=== PATIENT | male | born 1970 | race Caucasian/White ===

== ENCOUNTER 2016-11-26 17:37 | Inpatient (IN) | payer OTHER ==
[~2016-11-26] VITALS: Ht 182.9 cm; Wt 104.3 kg
[~2016-11-26 17:37] MED LIST: DOK100 MG PO; DONEPEZIL HCL10 MG PO; FAMOTIDINE20 MG PO; IMIPRAMINE HCL10 MG PO; LORATADINE10 MG PO; METHENAMINE HIPP1 GM PO; PROBIOTIC FORM1 EACH PO; SENNA8.6 MG PO; SIMETHICONE80 MG PO; SYMMETREL 100100 MG PO
[2016-11-26 20:32] LABS: HEMOGLOBIN 12.1 gm/dl (14.0-17.5); RED BLOOD COUNT 4.48 M/UL (4.20-5.50); WHITE BLOOD COUNT 11.1 K/UL (4.5-11.0)
[2016-11-26 20:56] LABS: BUN/CREATININE RATIO 30 (0-10)
[2016-11-27] MEDS ORDERED: NEURONTIN 400400 MG PO (10:32)
[2016-11-27] MEDS ORDERED: FERROUS SULFAT325 MG PO (10:33)
[2016-11-27] MEDS ORDERED: LISINOPRIL5 MG PO (10:35)
[2016-11-27] MEDS ORDERED: IPRAT-ALBUT 0.5-3 ML INH (10:35)
[2016-11-27] MEDS ORDERED: DITROPAN 5 MG TA5 MG PO (10:36)
[2016-11-27] MEDS ORDERED: TRAZODONE HCL50 MG PO (10:36)
[2016-11-27] MEDS ORDERED: IBUPROFEN800 MG PO (10:37)
[2016-11-27] MEDS ORDERED: VENTOLIN HFA 66.7 GM INH (10:38)
[2016-11-28 03:51] LABS: HEMOGLOBIN 10.6 gm/dl (14.0-17.5); WHITE BLOOD COUNT 11.5 K/UL (4.5-11.0)
[2016-11-28 04:00] LABS: RED BLOOD COUNT 3.98 M/UL (4.20-5.50)
[2016-11-28 04:21] LABS: BUN/CREATININE RATIO 22 (0-10)
--- NOTE | 2016-11-28 14:11 | NUR ---
1335 PATIENT TRANSPORTED TO SURGERY FOR WOUND DEBRIDEMENT
--- NOTE | 2016-11-28 16:50 | NUR ---
[id number] RETURNED FROM OR PATIENT ALERT ORIENTED
[2016-11-29 05:16] LABS: HEMOGLOBIN 10.2 gm/dl (14.0-17.5); RED BLOOD COUNT 3.9 M/UL (4.20-5.50); WHITE BLOOD COUNT 9.6 K/UL (4.5-11.0)
[2016-11-29 05:55] LABS: BUN/CREATININE RATIO 20 (0-10)
[2016-11-30 05:00] LABS: HEMOGLOBIN 10.1 gm/dl (14.0-17.5); RED BLOOD COUNT 3.85 M/UL (4.20-5.50); WHITE BLOOD COUNT 8.5 K/UL (4.5-11.0)
[2016-11-30 05:23] LABS: BUN/CREATININE RATIO 17 (0-10)
[2016-12-01 05:19] LABS: HEMOGLOBIN 10.4 gm/dl (14.0-17.5); RED BLOOD COUNT 3.97 M/UL (4.20-5.50); WHITE BLOOD COUNT 9.4 K/UL (4.5-11.0)
[2016-12-01 05:41] LABS: BUN/CREATININE RATIO 26 (0-10)
[2016-12-02 05:14] LABS: HEMOGLOBIN 10.1 gm/dl (14.0-17.5); RED BLOOD COUNT 3.85 M/UL (4.20-5.50); WHITE BLOOD COUNT 9.9 K/UL (4.5-11.0)
[2016-12-02 05:34] LABS: BUN/CREATININE RATIO 38 (0-10)
[2016-12-03] MEDS ORDERED: INVANZ 1 GM VIAL1 GM IV (16:09)
[2016-12-03] MEDS ORDERED: JUVEN PACKET1 EACH PO (16:10)
[2016-12-03] MEDS ORDERED: LEXAPRO5 MG PO (16:11)
[2016-12-03] MEDS ORDERED: AMOXICILLIN PO (16:11)
[2016-12-03] MEDS ORDERED: MIRALAX17 GM PO (16:12)
[2016-12-03] MEDS ORDERED: DAILY VALUE1 EACH PO (16:15)
[2016-12-03] MEDS ORDERED: FOLIC ACID 1 MG1 MG PO (16:49)
== END 2016-12-03 18:40 | disposition home health service (06) | DRG 853 ==
LOC: ER1 17:37 → ZEROF 23:06 → M/S 23:06 → PROG CARE 23:06 → M/S 11-27 06:00 → ZEROF 11-27 06:23 → ER1 11-27 06:23 → M/S 11-27 14:53 → PROG CARE 11-27 20:08 → M/S 12-01 16:11
PROVIDERS: Emergency Medicine; Family Medicine; Internal Medicine; Surgery; ADMIT Internal Medicine
PROC: 0HDMXZZ Extraction of Right Foot Skin, External Approach (ICD-10-PCS; 2016-11-28)
PROC: 0JB90ZZ Excision of Buttock Subcutaneous Tissue and Fascia, Open Approach (ICD-10-PCS; principal; 2016-11-28 13:15)
PROC: 02HV33Z Insertion of Infusion Device into Superior Vena Cava, Percutaneous Approach (ICD-10-PCS; 2016-12-01)
PROC: B548ZZA Ultrasonography of Superior Vena Cava, Guidance (ICD-10-PCS; 2016-12-01)
DX: A41.9 Sepsis, unspecified organism (principal); L89.313 Pressure ulcer of right buttock, stage 3; N30.01 Acute cystitis with hematuria; I96 Gangrene, not elsewhere classified; G82.20 Paraplegia, unspecified; G82.21 Paraplegia, complete; L89.151 Pressure ulcer of sacral region, stage 1; B95.2 Enterococcus as the cause of diseases classified elsewhere; B96.1 Klebsiella pneumoniae [K. pneumoniae] as the cause of diseases classified elsewhere; I10 Essential (primary) hypertension; E53.8 Deficiency of other specified B group vitamins; L89.629 Pressure ulcer of left heel, unspecified stage; L89.619 Pressure ulcer of right heel, unspecified stage; F32.9 Major depressive disorder, single episode, unspecified; T14.8 Other injury of unspecified body region; V89.2XXS Person injured in unspecified motor-vehicle accident, traffic, sequela; Z87.440 Personal history of urinary (tract) infections; N31.9 Neuromuscular dysfunction of bladder, unspecified; Z98.890 Other specified postprocedural states; Z79.899 Other long term (current) drug therapy; Z82.49 Family history of ischemic heart disease and other diseases of the circulatory system; Z87.891 Personal history of nicotine dependence; Z86.14 Personal history of Methicillin resistant Staphylococcus aureus infection; Z83.3 Family history of diabetes mellitus; K21.9 Gastro-esophageal reflux disease without esophagitis; R11.10 Vomiting, unspecified; I95.9 Hypotension, unspecified; K59.00 Constipation, unspecified; G47.00 Insomnia, unspecified; E87.6 Hypokalemia
CPT/HCPCS: 36415; 71010; 73650; 80048; 80053; 80202; 81001; 82607; 82728; 82746; 83540; 83735; 84466; 85025; 85027; 85045; 86140; 87040; 87070; 87077; 87086; 87186; 87205; 93005; 94640; 94664; 96365; 96366; 96372; 99283; C9113; G0378; J1335; J1650; J1756; J2250; J2370; J2543; J2550; J3010; J3370; J7030; J7040; J7050; J7070; J7120

== ENCOUNTER → 2017-01-13 | Outpatient (CLI) | payer OTHER ==
[~2017-01-13] VITALS: Ht 182.9 cm; Wt 104.3 kg
[~2017-01-13] MED LIST changes: +AMOXICILLIN PO; +ATIVAN0.5 MG SL; +DAILY VALUE1 EACH PO; +DITROPAN 5 MG TA5 MG PO; +DURAGESIC1 EAC1 TOP; +FERROUS SULFAT325 MG PO; +FOLIC ACID 1 MG1 MG PO; +IBUPROFEN800 MG PO; +INVANZ 1 GM VIAL1 GM IV; +IPRAT-ALBUT 0.5-3 ML INH; +JUVEN PACKET1 EACH PO; +LEXAPRO5 MG PO; +LISINOPRIL5 MG PO; +MIRALAX17 GM PO; +NEURONTIN 400400 MG PO; +ROXANOL SOLN20 MG/ML PO; +TRANSDERM-SCOP1 EACH TOP; +TRAZODONE HCL50 MG PO; +VENTOLIN HFA 66.7 GM INH
[2017-01-13 10:17] LABS: HEMOGLOBIN 11.4 gm/dl (14.0-17.5); RED BLOOD COUNT 4.27 M/UL (4.20-5.50); WHITE BLOOD COUNT 9.2 K/UL (4.5-11.0)
[2017-01-13 11:01] LABS: BUN/CREATININE RATIO 43 (0-10)
== END ==
LOC: OPSV 09:00
PROVIDERS: Surgery
DX: M86.9 Osteomyelitis, unspecified (principal)
CPT/HCPCS: 36592; 80048; 85027; 96365; 96366; J3370; J7030

== ENCOUNTER 2017-05-12 19:45 | Inpatient (IN) | payer OTHER ==
[~2017-05-12] VITALS: Ht 182.9 cm; Wt 111.6 kg
[~2017-05-12 19:45] MED LIST changes: -ATIVAN0.5 MG SL; -DURAGESIC1 EAC1 TOP; -ROXANOL SOLN20 MG/ML PO; -TRANSDERM-SCOP1 EACH TOP
[2017-05-12 20:40] LABS: HEMOGLOBIN 8.9 gm/dl (14.0-17.5); RED BLOOD COUNT 3.33 M/UL (4.20-5.50)
[2017-05-13 11:31] LABS: RED BLOOD COUNT 3.43 M/UL (4.20-5.50)
[2017-05-13 11:37] LABS: WHITE BLOOD COUNT 21.6 K/UL (4.5-11.0)
[2017-05-13 21:18] LABS: RED BLOOD COUNT 3.41 M/UL (4.20-5.50); WHITE BLOOD COUNT 21.4 K/UL (4.5-11.0)
--- NOTE | 2017-05-13 22:31 | NUR ---
1832- RESP DISTRESS, PT UNRESPONSIVE MD NOTIFED 1835- ER TO BEDSIDE FOR INTUBATION 1835- 7.5, 24 LIP -SEE CHART FOR SETTINGS 0- DR DUNN AT BEDSIDE
[2017-05-14 04:19] LABS: HEMOGLOBIN 9.6 gm/dl (14.0-17.5); RED BLOOD COUNT 3.42 M/UL (4.20-5.50); WHITE BLOOD COUNT 21.7 K/UL (4.5-11.0)
[2017-05-15 01:57] LABS: HEMOGLOBIN 8.5 gm/dl (14.0-17.5); RED BLOOD COUNT 3.29 M/UL (4.20-5.50); WHITE BLOOD COUNT 21.2 K/UL (4.5-11.0)
[2017-05-15 02:14] LABS: BUN/CREATININE RATIO 22 (0-10)
[2017-05-17 03:39] LABS: HEMOGLOBIN 7.6 gm/dl (14.0-17.5)
[2017-05-17 03:41] LABS: RED BLOOD COUNT 2.91 M/UL (4.20-5.50); WHITE BLOOD COUNT 11.1 K/UL (4.5-11.0)
[2017-05-17 04:00] LABS: BUN/CREATININE RATIO 18 (0-10)
[2017-05-20] MEDS ORDERED: DURAGESIC1 EAC1 TOP (11:08)
[2017-05-20] MEDS ORDERED: ROXANOL SOLN20 MG/ML PO (11:10)
[2017-05-20] MEDS ORDERED: TRANSDERM-SCOP1 EACH TOP (11:11)
[2017-05-20] MEDS ORDERED: ATIVAN0.5 MG SL (11:12)
[2017-05-20] MEDS ORDERED: IPRAT-ALBUT 0.5-3 ML INH (11:18)
== END 2017-05-20 15:07 | DRG 853 ==
LOC: ER1 19:45 → CCU 05-13 03:08 → ZEROF 05-13 03:08 → CCU 05-20 15:07
PROVIDERS: Family Medicine; Internal Medicine; Physician Assistant; Surgery; ADMIT Surgery
PROC: B544ZZA Ultrasonography of Left Jugular Veins, Guidance (ICD-10-PCS; 2017-05-13)
PROC: 05HN33Z Insertion of Infusion Device into Left Internal Jugular Vein, Percutaneous Approach (ICD-10-PCS; 2017-05-13)
PROC: 0BC38ZZ Extirpation of Matter from Right Main Bronchus, Via Natural or Artificial Opening Endoscopic (ICD-10-PCS; 2017-05-13)
PROC: 5A1945Z Respiratory Ventilation, 24-96 Consecutive Hours (ICD-10-PCS; 2017-05-13)
PROC: 0BH17EZ Insertion of Endotracheal Airway into Trachea, Via Natural or Artificial Opening (ICD-10-PCS; 2017-05-13)
PROC: 03HC33Z Insertion of Infusion Device into Left Radial Artery, Percutaneous Approach (ICD-10-PCS; 2017-05-13)
PROC: 0DQ60ZZ Repair Stomach, Open Approach (ICD-10-PCS; principal; 2017-05-13 00:49)
DX: A41.9 Sepsis, unspecified organism (principal); K25.1 Acute gastric ulcer with perforation; J96.01 Acute respiratory failure with hypoxia; K65.8 Other peritonitis; R65.21 Severe sepsis with septic shock; J96.02 Acute respiratory failure with hypercapnia; Z51.5 Encounter for palliative care; Z66 Do not resuscitate; J98.11 Atelectasis; T17.590A Other foreign object in bronchus causing asphyxiation, initial encounter; N17.9 Acute kidney failure, unspecified; G82.20 Paraplegia, unspecified; N30.00 Acute cystitis without hematuria; M86.8X8 Other osteomyelitis, other site; E87.2 Acidosis; J81.1 Chronic pulmonary edema; D64.9 Anemia, unspecified; Y83.3 Surgical operation with formation of external stoma as the cause of abnormal reaction of the patient, or of later complication, without mention of misadventure at the time of the procedure; M25.511 Pain in right shoulder; Z78.1 Physical restraint status; L89.159 Pressure ulcer of sacral region, unspecified stage; L89.619 Pressure ulcer of right heel, unspecified stage; L89.899 Pressure ulcer of other site, unspecified stage; I10 Essential (primary) hypertension; Z83.3 Family history of diabetes mellitus; I95.81 Postprocedural hypotension; X58.XXXA Exposure to other specified factors, initial encounter; Y93.9 Activity, unspecified; Y92.230 Patient room in hospital as the place of occurrence of the external cause; Y92.009 Unspecified place in unspecified non-institutional (private) residence as the place of occurrence of the external cause; N31.9 Neuromuscular dysfunction of bladder, unspecified; B96.20 Unspecified Escherichia coli [E. coli] as the cause of diseases classified elsewhere; Z87.891 Personal history of nicotine dependence; R53.81 Other malaise; V29.9XXS Motorcycle rider (driver) (passenger) injured in unspecified traffic accident, sequela; S24.109S Unspecified injury at unspecified level of thoracic spinal cord, sequela
CPT/HCPCS: 31500; 36415; 36600; 71010; 71250; 80048; 80053; 81001; 82150; 82803; 83605; 83690; 85025; 85027; 87040; 87070; 87077; 87086; 87186; 87205; 94002; 94003; 94640; 94664; 94667; 94668; A4628; C1751; J0330; J1335; J1644; J1650; J1940; J2060; J2250; J2270; J2370; J2405; J3010; J7030; J7040; J7050; J7070; J7120; P9045